=== PATIENT | male | born 1950 | race Caucasian/White ===

== ENCOUNTER 2024-11-20 15:05 | Inpatient (IN) | payer OTHER, BC ==
[2024-11-20] MEDS ORDERED: ACETAMINOPHEN INJECTION 100 ML ONE (16:32)
[2024-11-20] MEDS ORDERED: METHOCARBAMOL 750 MG TAB PO ONE (16:50)
[2024-11-20] MEDS: ACETAMINOPHEN 1000 MG/100 ML BAG IVPB ONE (16:55)
[2024-11-20 17:12] LABS: URINE APPEARANCE CLEAR; URINE BILIRUBIN NEGATIVE (NEGATIVE); URINE COLOR YELLOW; URINE GLUCOSE (UA) NEGATIVE (NEGATIVE); URINE KETONE NEGATIVE (NEGATIVE); URINE LEUK ESTERASE NEGATIVE (NEGATIVE); URINE NITRITE NEGATIVE (NEGATIVE); URINE PROTEIN NEGATIVE (NEGATIVE); URINE UROBILINOGEN 0.2 mg/dL (0.2-1.0)
[2024-11-20 17:33] LABS: GLUCOSE,RANDOM 92.0 mg/dL (74-106); TOT PROT 8.2 g/dl (6.4-8.2)
[2024-11-20 17:34] LABS: CO2 26.0 mmol/L (21-32)
[2024-11-20] MEDS ORDERED: METHOCARBAMOL 500 MG TABLET ONE (17:35)
[2024-11-20 17:36] LABS: ALK PHOS 87.0 U/L (40-150)
[2024-11-20 17:38] LABS: SGPT/ALT 43.0 U/L (0-55)
[2024-11-20 17:39] LABS: CREATININE 0.62 mg/dL (0.55-1.3); SGOT/AST 52.0 U/L (5-34)
[2024-11-20] MEDS: METHOCARBAMOL 500 MG TABLET PO ONE (17:54)
[2024-11-20 18:07] LABS: ERYTHROCYTE SEDIMENTATION RATE 25 mm/hr (0-20)
[2024-11-20 18:41] LABS: HCV DIAGNOSTIC IN-HOUSE W/RFLX NON-REACTIVE (NONREACTIVE)
[2024-11-20 18:42] LABS: HIV INTERPRETATION NEGATIVE (NEGATIVE)
[2024-11-20] MEDS: KETOROLAC TROMETHAMINE 15 MG/ML VIAL IVPUSH ONE (19:00)
[2024-11-20] MEDS ORDERED: KETOROLAC TROMETHAMINE 15 MG/ML VIAL ONE (19:07)
[2024-11-20 19:20] LABS: MCHC 33.1 g/dl (32.3-36.5); MEAN CELL VOLUME 93.2 fl (79.0-92.2); MEAN PLT VOLUME 9.7 fl (9.4-12.4); RDW 12.6 % (12.2-16.6)
[2024-11-20 19:21] LABS: ABSOLUTE IMMATURE GRANULOCYTES 0.13 x10^3/uL (0.0-0.031); BASOPHILS # 0.05 x10^3/uL (0.01-0.08); EOSINOPHIL % 0.5 % (0.8-7.0); EOSINOPHILS # 0.06 x10^3/uL (0.04-0.54); MONOCYTE # 1.09 x10^3/uL (0.30-0.82); MONOCYTE % 8.7 % (5.3-12.2)
[2024-11-20] MEDS ORDERED: DEXAMETHASONE SOD PHOSPHATE 10 MG/1 ML VIAL ONE (19:31)
[2024-11-20] MEDS: DEXAMETHASONE SOD PHOSPHATE 10 MG/1 ML VIAL IVPUSH ONE (19:43)
[2024-11-20] MEDS: morphine CARPU-JECT 4 MG/1 ML DISP.SYRIN IVPUSH ONE (21:22)
[2024-11-20] MEDS ORDERED: ACETAMINOPHEN 1000 MG/100 ML BAG IVPB PRN ×2 (21:35→23:48)
[2024-11-20 23:18] VITALS: BMI 24.0
[2024-11-20] MEDS ORDERED: morphine CARPU-JECT 2 MG/1 ML DISP.SYRIN IM PRN ×2 (23:41→23:51)
[2024-11-20] MEDS ORDERED: KETOROLAC TROMETHAMINE 15 MG/ML VIAL IM PRN (23:49)
[2024-11-21] MEDS ORDERED: morphine CARPU-JECT 2 MG/1 ML DISP.SYRIN IVPUSH PRN (09:23)
[2024-11-21 09:52] LABS: ABSOLUTE IMMATURE GRANULOCYTES 0.11 x10^3/uL (0.0-0.031); BASOPHILS # 0.03 x10^3/uL (0.01-0.08); EOSINOPHIL % 0.0 % (0.8-7.0); EOSINOPHILS # 0.00 x10^3/uL (0.04-0.54); MCHC 32.3 g/dl (32.3-36.5); MEAN CELL VOLUME 94.0 fl (79.0-92.2); MEAN PLT VOLUME 9.5 fl (9.4-12.4); MONOCYTE # 0.66 x10^3/uL (0.30-0.82); MONOCYTE % 6.0 % (5.3-12.2); RDW 12.5 % (12.2-16.6)
[2024-11-21 10:26] LABS: GLUCOSE,RANDOM 103.0 mg/dL (74-106); TOT PROT 6.9 g/dl (6.4-8.2)
[2024-11-21 10:29] LABS: ALK PHOS 81.0 U/L (40-150)
[2024-11-21 10:32] LABS: CREATININE 0.69 mg/dL (0.55-1.3); SGOT/AST 27.0 U/L (5-34); SGPT/ALT 35.0 U/L (0-55)
[2024-11-21 10:53] LABS: CO2 31.0 mmol/L (21-32)
[2024-11-21] MEDS: ENOXAPARIN NA (PORCINE) 40 MG/0.4 ML DISP.SYRIN SQ SCH (11:21)
[2024-11-21] MEDS: METHOCARBAMOL 500 MG TABLET PO SCH (11:21)
[2024-11-21 15:47] VITALS: BP 128/76; PULSE 69; RESP 18; TEMP 98.2
[2024-11-21] MEDS ORDERED: DEXAMETHASONE SOD PHOSPHATE 10 MG/1 ML VIAL IVPUSH ONE (19:26)
== END 2024-11-21 18:40 | disposition home or self-care (01) | DRG 556 ==
LOC: JER 15:05 → JERBED 20:37 → OBSVTOIN 20:53 → J6S 22:42
PROVIDERS: ADMIT Hospitalist; ATTEND Internal Medicine
DX: M25.551 Pain in right hip (principal); Z85.46 Personal history of malignant neoplasm of prostate; D72.829 Elevated white blood cell count, unspecified; R79.82 Elevated C-reactive protein (CRP); R70.0 Elevated erythrocyte sedimentation rate
CPT/HCPCS: 36415; 72170-TC-FY; 72192-TC; 73502-TC-RT-FY; 80053; 81003; 83735; 84100; 84132; 84703; 85025; 85651; 86140; 86803; 87086; 87389; 97116-GP; 97162-GP; 99285-25; G0378; J1100